=== PATIENT | female | born 1935 | race Two or more races ===

== ENCOUNTER 2018-02-28 09:05 | Outpatient (CLI) | payer OTHER ==
[~2018-02-28 09:05] MED LIST: NABUMETONE500 MG PO; PERCOCET 5/3251 TAB PO
== END 2018-02-28 09:23 | disposition home or self-care (01) ==
LOC: LAB 09:05 → NUCLEAR 14:00
DX: I11.9 Hypertensive heart disease without heart failure (principal); Z00.01 Encounter for general adult medical examination with abnormal findings; E55.9 Vitamin D deficiency, unspecified; M81.0 Age-related osteoporosis without current pathological fracture; E03.8 Other specified hypothyroidism

== ENCOUNTER 2018-02-28 14:34 | Outpatient (CLI) | payer OTHER | END 2018-02-28 15:07 | disposition home or self-care (01) | LOC: NUCLEAR 14:34 | DX: M81.0 Age-related osteoporosis without current pathological fracture (principal) ==